=== PATIENT | female | born 2000 | race Two or more races ===

== ENCOUNTER 2023-12-11 13:30 | Inpatient (IN) | payer OTHER ==
[~2023-12-11] VITALS: Ht 160 cm; Wt 66.2 kg
[~2023-12-11 13:30] MED LIST: FERROUS SULFAT325 M1 PO; IRON240 MG PO; PRENA1 TRUE CO1 EACH; PRENATE ENHANC1 EACH PO
[2023-12-25] MEDS ORDERED: RINGERS SOLUTION,LACTATED 1,000 ML IV SCH (16:15)
[2023-12-25] MEDS ORDERED: MORPHINE SULFATE 4 MG/ML CARTRIDGE IV PRN (16:15)
[2023-12-25] MEDS ORDERED: AMPICILLIN SODIUM 2,000 MG VIAL ONE (16:17)
[2023-12-25] MEDS ORDERED: AMPICILLIN SODIUM 2,000 MG VIAL IV ONE (16:30)
[2023-12-25] MEDS ORDERED: MISOPROSTOL 25 MCG TABLET ONE (16:41)
[2023-12-25 17:31] LABS: PH,URINE 6.5 (5.0-8.0); URINE APPEARANCE Clear; URINE BILIRRUBIN Negative (NEGATIVE); URINE BLOOD Negative; URINE COLOR Yellow; URINE GLUCOSE Negative (NEGATIVE); URINE LEUKOCYTE Negative; URINE NITRATE Negative; URINE PROTEIN Negative (NEGATIVE); URINE UROBILINOGEN 0.2 E.U./dl
[2023-12-25 17:35] LABS: URINE BACTERIA 1201.9 uL (0.0-1933); URINE EPITHELIAL CELLS 15.4 uL (0.0-38.8)
[2023-12-25 17:41] LABS: HEMATOCRIT 33.5 % (36.0-45.00); HEMOGLOBIN 10.7 g/dL (12.0-15.00); MEAN CELL VOLUME 78.5 fL (80.00-100.00); MEAN CORPUSCULAR HEMOGLOBIN 25.1 pg (27.00-32.0); MEAN CORPUSCULAR HGB CONC 31.9 g/dl (32.0-36.0); PLATELET COUNT 333 K/uL (150-450); RED BLOOD COUNT 4.27 M/uL (4.00-6.00)
[2023-12-25 17:51] LABS: ALBUMIN 3.1 gm/dL (3.4-5.0); BILIRUBIN TOTAL 0.55 mg/dL (0.3-1.2); CALCIUM 9.4 mg/dL (8.5-10.1); CREATININE SERUM 0.49 mg/dL (0.55-1.02); GFR 155.16; GLOBULINA 3.9 G/DL (2.4-3.5); POTASSIUM 4.02 mEq/L (3.5-5.1); RED CELL DISTRIBUTION WIDTH 25.7 % (11.5-14.5)
[2023-12-25 18:19] LABS: URINE RBC 0.7 uL (0.0-20.8)
[2023-12-25 18:26] LABS: INR < 0.93; PARTIAL THROMBOPLASTIN TIME 30.5 SECONDS (22.0-34.0); PROTHROMBIN TIME 9.8 SECONDS (9.0-11.5)
[2023-12-25] MEDS ORDERED: AMPICILLIN SODIUM 1,000 MG VIAL IV SCH (20:00)
[2023-12-25] MEDS ORDERED: MISOPROSTOL 25 MCG TABLET VAG ONE (22:45)
[2023-12-26] MEDS ORDERED: ONDANSETRON HCL 2 MG/ML VIAL ONE (00:50)
[2023-12-26] MEDS ORDERED: ONDANSETRON HCL 2 MG/ML VIAL IV PRN (01:00)
[2023-12-26] MEDS ORDERED: OXYTOCIN 20 UNITS/500ML RL PIGGYBAG IV ONE ×2 (07:09→08:15)
[2023-12-26] MEDS ORDERED: OXYTOCIN 20 UNITS/1000ML RL PIGGYBAG IV ONE (10:21)
[2023-12-26] MEDS ORDERED: ERYTHROMYCIN BASE 1 GM TUBE OP ONE (10:21)
[2023-12-26] MEDS ORDERED: CHLORHEXIDINE GLUCONATE 120 ML BOTTLE TOP ONE (10:21)
[2023-12-26] MEDS ORDERED: LIDOCAINE HCL 1% 10ML VIAL ONE (10:22)
[2023-12-26] MEDS ORDERED: ERYTHROMYCIN BASE 1 GM TUBE OP SCH (12:30)
[2023-12-26] MEDS ORDERED: IBUprofen 400 MG TABLET PO PRN (12:30)
[2023-12-26] MEDS ORDERED: CHLORHEXIDINE GLUCONATE 120 ML BOTTLE TOP SCH (12:30)
[2023-12-26] MEDS ORDERED: OXYTOCIN 1,000 ML IV SCH (12:30)
[2023-12-26] MEDS ORDERED: DOCUSATE SODIUM 100MG CAP PO SCH (17:00)
[2023-12-26 17:23] LABS: HEMATOCRIT 27.1 % (36.0-45.00); MEAN CELL VOLUME 78.3 fL (80.00-100.00); PLATELET COUNT 293 K/uL (150-450); RED BLOOD COUNT 3.46 M/uL (4.00-6.00); RED CELL DISTRIBUTION WIDTH 24.4 % (11.5-14.5)
[2023-12-26 17:37] LABS: HEMOGLOBIN 8.7 g/dL (12.0-15.00); MEAN CORPUSCULAR HEMOGLOBIN 25.1 pg (27.00-32.0)
[2023-12-27] MEDS ORDERED: PNV,CALCIUM 72/IRON/FOLIC ACID 1 TAB TABLET PO SCH (09:00)
[2023-12-27] MEDS ORDERED: FERROUS SULFATE 325 MG TABLET.EC PO SCH (12:00)
[2023-12-27] MEDS ORDERED: IBUprofen 600 MG TABLET PO SCH (12:00)
[2023-12-27] MEDS ORDERED: CYCLOBENZAPRINE HCL 5 MG TABLET PO PRN (12:15)
== END 2023-12-28 14:03 | disposition home or self-care (01) | DRG 807 ==
LOC: LDR 12-25 14:42 → OB/GYN 12-26 12:23 → LDR 12-31 13:30
PROVIDERS: Obstetrics & Gynecology Gynecology; ADMIT Obstetrics & Gynecology; ATTEND Obstetrics & Gynecology
PROC: 3E0P7VZ Introduction of Hormone into Female Reproductive, Via Natural or Artificial Opening (ICD-10-PCS; 2023-12-25)
PROC: 4A1HXCZ Monitoring of Products of Conception, Cardiac Rate, External Approach (ICD-10-PCS; 2023-12-25)
PROC: 10E0XZZ Delivery of Products of Conception, External Approach (ICD-10-PCS; principal; 2023-12-26)
PROC: 0KQM0ZZ Repair Perineum Muscle, Open Approach (ICD-10-PCS; 2023-12-26)
PROC: 3E033VJ Introduction of Other Hormone into Peripheral Vein, Percutaneous Approach (ICD-10-PCS; 2023-12-26)
DX: O70.1 Second degree perineal laceration during delivery (principal); Z37.0 Single live birth; Z3A.39 39 weeks gestation of pregnancy; Z20.822 Contact with and (suspected) exposure to COVID-19

== ENCOUNTER 2023-12-18 17:09 | Outpatient (CLI) | payer OTHER | END 2023-12-18 18:29 | disposition home or self-care (01) | LOC: NST 17:09 | PROVIDERS: ATTEND Obstetrics & Gynecology | DX: Z34.83 Encounter for supervision of other normal pregnancy, third trimester (principal) ==